=== PATIENT | female | born 1940 | race Hispanic/Latino ===

== ENCOUNTER → 2018-05-01 | Outpatient (CLI) | payer MEDICARE ==
[~2018-05-01] MED LIST: ALEN70TA47 PO; AMLO10TA6 PO; ASPI-1181 PO; ATOR10TA69 PO; CHOL500050 PO; ESOM40CA54 PO; FERS325 PO; FLUT16H NS; FURO40TA5 PO; INSU100V3 IJ; ISOS30TA6 PO; LEVO125T11 PO; METF-446 PO; METO200T49 PO; NPH,100V SQ; OLME20TA22 PO
== END | disposition home or self-care (01) ==
LOC: SHCH 09:25
PROVIDERS: ATTEND Internal Medicine Cardiovascular Disease
DX: I50.9 Heart failure, unspecified (principal)
CPT/HCPCS: 93306

== ENCOUNTER 2019-01-18 18:02 | Inpatient (IN) | payer MEDICARE ==
[~2019-01-18] VITALS: Ht 157.5 cm; Wt 87.7 kg
[~2019-01-18 18:02] MED LIST changes: +ALEN70TA10 PO; -ALEN70TA47 PO; -AMLO10TA6 PO; +AMLO10TA7 PO
[2019-01-18 18:57] LABS: BASOPHILS % (AUTO) 0.9 % (0.0-5.0); EOSINOPHILS % (AUTO) 3.3 % (0.0-8.0); HEMATOCRIT 31.7 % (36-48); LYMPHOCYTES % (AUTO) 13.9 % (21.0-51.0); MEAN CORPUSCULAR HEMOGLOBIN 24.6 pg (27.0-33.0); MEAN CORPUSCULAR HGB CONC 31.9 g/dL (32.0-36.0); MEAN CORPUSCULAR VOLUME 77.3 fL (79-99); MONOCYTES % (AUTO) 10.1 % (3.0-13.0); NEUTROPHILS % (AUTO) 71.8 % (40.0-77.0); NUCLEATED RED BLOOD CELLS 0.1 % (0.0-0.19); PLATELET COUNT (AUTO) 333 K/uL (130-400); RED CELL DISTRIBUTION WIDTH 18.7 % (11.0-15.5); WHITE BLOOD COUNT (AUTO) 9.3 K/uL (4.8-10.8)
[2019-01-18 19:15] LABS: CREATININE 1.3 mg/dL (0.5-1.5); POTASSIUM 4.8 mmol/L (3.5-5.1)
[2019-01-18 19:16] LABS: BILIRUBIN,TOTAL 0.4 mg/dL (0.2-1.0); TOTAL PROTEIN, SERUM 6.9 g/dL (6.0-8.3)
[2019-01-18 19:59] LABS: INR 1.06 (0.85-1.15); PARTIAL THROMBOPLASTIN TIME 29.3 SEC (26.3-35.5); PROTHROMBIN TIME 11.1 SEC (9.6-11.6)
[2019-01-18 20:18] LABS: B-TYPE NATRIURETIC PEPTIDE 665 pg/mL (0-100)
[2019-01-18] MEDS ORDERED: FUROSEMIDE 10 MG/ML 4ML VIAL ONE (20:25)
[2019-01-19] MEDS ORDERED: FUROSEMIDE 10 MG/ML 2ML VIAL ONE ×2 (03:58→10:16)
[2019-01-19] MEDS ORDERED: ONDANSETRON HCL 4 MG/2 ML VIAL IVP PRN (05:30)
[2019-01-19 06:07] LABS: BASOPHILS % (AUTO) 0.8 % (0.0-5.0); EOSINOPHILS % (AUTO) 3.3 % (0.0-8.0); LYMPHOCYTES % (AUTO) 13.6 % (21.0-51.0); MEAN CORPUSCULAR HGB CONC 31.9 g/dL (32.0-36.0); MEAN CORPUSCULAR VOLUME 75.4 fL (79-99); MONOCYTES % (AUTO) 10.8 % (3.0-13.0); NEUTROPHILS % (AUTO) 71.5 % (40.0-77.0); PLATELET COUNT (AUTO) 323 K/uL (130-400); RED BLOOD CELL COUNT(AUTO) 4.11 MIL/uL (4.00-5.50); RED CELL DISTRIBUTION WIDTH 18.4 % (11.0-15.5)
[2019-01-19 06:14] LABS: CREATININE 1.2 mg/dL (0.5-1.5); POTASSIUM 4.4 mmol/L (3.5-5.1)
[2019-01-19 06:21] LABS: ALBUMIN 2.9 g/dL (3.5-5.0); BILIRUBIN,TOTAL 0.5 mg/dL (0.2-1.0); MAGNESIUM 0.9 mg/dL (1.80-2.40); TOTAL PROTEIN, SERUM 6.7 g/dL (6.0-8.3)
[2019-01-19 06:29] LABS: B-TYPE NATRIURETIC PEPTIDE 751 pg/mL (0-100)
[2019-01-19] MEDS: FUROSEMIDE 10 MG/ML 2ML VIAL IVP SCH ×3 (09:00→20:11)
[2019-01-19 12:00] VITALS: BP 158/73
--- NOTE | 2019-01-19 12:24 | NUR ---
DR. MARK BRUNER ROUNDED CPOE ORDERS
[2019-01-19 16:00] VITALS: BP_SYST 174; BP_SYST 184; BP_DIAS 79; BP_DIAS 84
[2019-01-19] MEDS ORDERED: POTASSIUM CHLORIDE 20MEQ/100ML 100 ML IV PRN (16:15)
[2019-01-19] MEDS ORDERED: LIDOCAINE HCL-MPF 1% 2ML VIAL IVP PRN (16:15)
[2019-01-19] MEDS ORDERED: POTASSIUM CHLORIDE 20 MEQ ERTAB PO PRN (16:15)
[2019-01-19] MEDS ORDERED: DEXTROSE 50%-WATER 50 ML DISP.SYRIN IV PRN (16:15)
[2019-01-19] MEDS ORDERED: GLUCAGON 1MG KIT 1 MG ML IM PRN (16:15)
[2019-01-19] MEDS ORDERED: POTASSIUM CHLORIDE 10% ELIXIR 20 MEQ/15 ML UDCUP PO PRN (16:15)
[2019-01-19] MEDS ORDERED: MAGNESIUM 2GM PREMIX 50ML 50 ML IV ONE (16:16)
[2019-01-19] MEDS ORDERED: INSULIN HUMULIN R 100 UNIT/ML 3ML ONE (16:17)
[2019-01-19] MEDS ORDERED: INSULIN HUMULIN R 100 UNIT/ML 3ML SQ SCH (16:30)
[2019-01-19] MEDS: METFORMIN HCL 500 MG TABLET PO SCH (17:14)
[2019-01-19] MEDS ORDERED: ALEN70TA10 PO (17:27)
[2019-01-19] MEDS ORDERED: VALS320T16 PO (17:27)
[2019-01-19] MEDS ORDERED: OXYB5TAB10 PO (17:27)
[2019-01-19 19:00] VITALS: BP 142/64
[2019-01-19] MEDS: INSULIN HUMULIN R 100 UNIT/ML 3ML SQ SCH (20:11)
[2019-01-19] MEDS: ATORVASTATIN CALCIUM 10 MG TABLET PO SCH (20:11)
[2019-01-19] MEDS: ENALAPRIL MALEATE 5 MG TAB PO SCH (20:11)
[2019-01-19] MEDS: MAGNESIUM 2GM PREMIX 50ML 50 ML IV PRN (20:12)
[2019-01-20] VITALS (7 sets, daily range): BP systolic 120–169; BP diastolic 56–92
[2019-01-20] MEDS: FUROSEMIDE 10 MG/ML 2ML VIAL IVP SCH ×4 (03:02→20:10)
[2019-01-20 04:40] LABS: BASOPHILS % (AUTO) 0.5 % (0.0-5.0); EOSINOPHILS % (AUTO) 1.6 % (0.0-8.0); HEMATOCRIT 30.6 % (36-48); LYMPHOCYTES % (AUTO) 9.4 % (21.0-51.0); MEAN CORPUSCULAR HEMOGLOBIN 24.3 pg (27.0-33.0); MEAN CORPUSCULAR HGB CONC 32.1 g/dL (32.0-36.0); MEAN CORPUSCULAR VOLUME 75.9 fL (79-99); MONOCYTES % (AUTO) 11.2 % (3.0-13.0); NEUTROPHILS % (AUTO) 77.3 % (40.0-77.0); PLATELET COUNT (AUTO) 312 K/uL (130-400); RED BLOOD CELL COUNT(AUTO) 4.04 MIL/uL (4.00-5.50); RED CELL DISTRIBUTION WIDTH 17.8 % (11.0-15.5); WHITE BLOOD COUNT (AUTO) 12.6 K/uL (4.8-10.8)
[2019-01-20 04:49] LABS: B-TYPE NATRIURETIC PEPTIDE 611 pg/mL (0-100); INR 1.08 (0.85-1.15); PARTIAL THROMBOPLASTIN TIME 28.2 SEC (26.3-35.5); PROTHROMBIN TIME 11.3 SEC (9.6-11.6)
[2019-01-20 04:57] LABS: ALBUMIN 2.8 g/dL (3.5-5.0); BILIRUBIN,TOTAL 0.6 mg/dL (0.2-1.0); CREATININE 1.2 mg/dL (0.5-1.5); MAGNESIUM 1.5 mg/dL (1.80-2.40); PHOSPHORUS 3.8 mg/dL (2.5-4.9); POTASSIUM 3.7 mmol/L (3.5-5.1); TOTAL PROTEIN, SERUM 6.5 g/dL (6.0-8.3)
[2019-01-20] MEDS: LEVOTHYROXINE 125 MCG TABLET PO SCH (06:28)
[2019-01-20] MEDS: MAGNESIUM 2GM PREMIX 50ML 50 ML IV PRN (06:29)
[2019-01-20] MEDS: INSULIN HUMULIN R 100 UNIT/ML 3ML SQ SCH ×4 (06:34→20:21)
[2019-01-20] MEDS: ENOXAPARIN SODIUM 30 MG/0.3 ML SQ SCH (08:41)
[2019-01-20] MEDS: ISOSORBIDE MONO 30MG TAB SR PO SCH (08:41)
[2019-01-20] MEDS: LOSARTAN 100 MG TABLET PO SCH (08:42)
[2019-01-20] MEDS: ENALAPRIL MALEATE 5 MG TAB PO SCH ×2 (08:42→20:10)
[2019-01-20] MEDS: ASPIRIN 81 MG EC TAB PO SCH (08:42)
[2019-01-20] MEDS: AMLODIPINE BESYLATE 5 MG TAB PO SCH (08:42)
[2019-01-20] MEDS: METFORMIN HCL 500 MG TABLET PO SCH ×2 (08:42→17:00)
[2019-01-20] MEDS: FERROUS SULFATE 325 MG TABLET.DR PO SCH (08:42)
[2019-01-20] MEDS: IPRATROPIUM 0.5 MG/2.5 ML INH IH SCH ×3 (13:50→23:52)
[2019-01-20] MEDS ORDERED: DIATR MEGLU/DIATRIZOATE SODIUM 30 ML BOTTLE ONE ×2 (14:05→14:33)
--- NOTE | 2019-01-20 18:07 | NUR ---
cm note met with patient and states resides athome with alone, has provider approx 5hrs daily assists with bath and alds, pt uses walker and cane at home, has nebulizer. pt states would like to go to [facility] for rehab, prior to going home. has been there in the past, for rehab. informed that md orders were given for snf, Alex letter/YULIA obtained. Addendum: 01/20/19 at 1809 by LALITO HOOPER CM Amended: Links added.
--- NOTE | 2019-01-20 18:08 | NUR ---
DR. ESCOBAR AWARE OF PT'S REDNESS IN BLE AND PT'S CASA RASH ORDERS FOR MONIQUE AND LEROY ONLY
[2019-01-20 18:41] LABS: APPEARANCE,URINE CLOUDY (CLEAR); BILIRUBIN,URINE NEGATIVE (NEGATIVE); COLOR,URINE YELLOW (YELLOW); GLUCOSE, URINE (UA) NEGATIVE (NEGATIVE); KETONES,URINE NEGATIVE (NEGATIVE); LEUKOCYTE ESTERASE ,URINE LARGE (NEGATIVE); NITRATE,URINE NEGATIVE (NEGATIVE); OCCULT BLOOD,URINE TRACE-INTACT (NEGATIVE); PROTEIN,URINE 30 mg/dL (NEGATIVE); UROBILINOGEN,URINE 0.2 mg/dL (0.2-1.0)
[2019-01-20] MEDS ORDERED: PHARMACY COMMUNICATION MISC SCH (18:45)
[2019-01-20 19:00] LABS: BACTERIA,URINE Moderate /HPF (None Seen); RBC,URINE 0-1 /HPF (0-1); SQUAMOUS EPITHELIAL CELL,UR None Seen /HPF (0-2)
[2019-01-20] MEDS ORDERED: VANCOMYCIN PROTOCOL PER PHARMACY IV SCH (19:30)
[2019-01-20] MEDS ORDERED: VANCOMYCIN 1.5 GM in SODIUM CHLORIDE 0.9% 250 ML IV ONE (19:30)
[2019-01-20] MEDS: FLUTICASONE PROPIONATE 50MCG/SPRAY 16 GM BOTTLE NS SCH (20:10)
[2019-01-20] MEDS: ATORVASTATIN CALCIUM 10 MG TABLET PO SCH (20:10)
[2019-01-20] MEDS: ZOSYN 3.375GM+NS 50ML 50 ML IV SCH (20:23)
[2019-01-20] MEDS: ACETAMINOPHEN 325 MG TAB PO PRN (22:08)
[2019-01-21] MEDS: FUROSEMIDE 10 MG/ML 2ML VIAL IVP SCH ×3 (02:09→21:45)
[2019-01-21 03:42] VITALS: BP 134/60
[2019-01-21] MEDS: ZOSYN 3.375GM+NS 50ML 50 ML IV SCH ×3 (04:49→21:45)
[2019-01-21] MEDS: INSULIN HUMULIN R 100 UNIT/ML 3ML SQ SCH ×4 (05:41→21:50)
[2019-01-21 05:42] LABS: BASOPHILS % (AUTO) 0.4 % (0.0-5.0); EOSINOPHILS % (AUTO) 1.4 % (0.0-8.0); LYMPHOCYTES % (AUTO) 16.7 % (21.0-51.0); MEAN CORPUSCULAR HEMOGLOBIN 24.1 pg (27.0-33.0); MEAN CORPUSCULAR HGB CONC 31.9 g/dL (32.0-36.0); MEAN CORPUSCULAR VOLUME 75.5 fL (79-99); MONOCYTES % (AUTO) 15.2 % (3.0-13.0); NEUTROPHILS % (AUTO) 66.3 % (40.0-77.0); PLATELET COUNT (AUTO) 300 K/uL (130-400); RED BLOOD CELL COUNT(AUTO) 4.11 MIL/uL (4.00-5.50); RED CELL DISTRIBUTION WIDTH 18.4 % (11.0-15.5); WHITE BLOOD COUNT (AUTO) 11.2 K/uL (4.8-10.8)
[2019-01-21 06:08] LABS: ALBUMIN 2.8 g/dL (3.5-5.0); BILIRUBIN,TOTAL 1.1 mg/dL (0.2-1.0); CREATININE 1.2 mg/dL (0.5-1.5); MAGNESIUM 1.6 mg/dL (1.80-2.40); POTASSIUM 3.5 mmol/L (3.5-5.1); TOTAL PROTEIN, SERUM 6.5 g/dL (6.0-8.3)
[2019-01-21 06:09] LABS: B-TYPE NATRIURETIC PEPTIDE 905 pg/mL (0-100)
[2019-01-21] MEDS: LEVOTHYROXINE 125 MCG TABLET PO SCH (06:27)
[2019-01-21] MEDS: IPRATROPIUM 0.5 MG/2.5 ML INH IH SCH ×4 (07:20→22:13)
[2019-01-21] MEDS: METFORMIN HCL 500 MG TABLET PO SCH ×2 (07:53→16:35)
[2019-01-21] MEDS: FERROUS SULFATE 325 MG TABLET.DR PO SCH (07:53)
[2019-01-21 07:56] VITALS: BP 153/70
[2019-01-21] MEDS ORDERED: REGADENOSON 0.4 MG/5 ML PF SYG IVP SCH (08:15)
[2019-01-21] MEDS: LOSARTAN 100 MG TABLET PO SCH (10:11)
[2019-01-21] MEDS: ISOSORBIDE MONO 30MG TAB SR PO SCH (10:11)
[2019-01-21] MEDS: ENALAPRIL MALEATE 5 MG TAB PO SCH (10:12)
[2019-01-21] MEDS: ASPIRIN 81 MG EC TAB PO SCH (10:12)
[2019-01-21] MEDS: POLYETHYLENE GLYCOL 3350 17 GM POWD.PACK PO SCH (10:12)
[2019-01-21] MEDS: AMLODIPINE BESYLATE 5 MG TAB PO SCH (10:12)
[2019-01-21] MEDS: FLUTICASONE PROPIONATE 50MCG/SPRAY 16 GM BOTTLE NS SCH (10:13)
[2019-01-21] MEDS: ENOXAPARIN SODIUM 30 MG/0.3 ML SQ SCH (10:19)
--- NOTE | 2019-01-21 11:11 | NUR ---
C JENNIFFER ROUNDED ON PATIENT NEW ORDERS FOR TANYA-MEDROL , INCREASE LASIX DOSE TO 40 MG BID AND POTASSIUM AND MAG PROTOCOL , BREATHING TX CHANGED TO Q 4 HRIS , IS Q 2 HOURS W/A , AND BIPAP PRN
[2019-01-21] MEDS ORDERED: MAGNESIUM 2GM PREMIX 50ML 50 ML IV PRN (11:15)
[2019-01-21 11:23] VITALS: BP 138/62
[2019-01-21] MEDS ORDERED: METHYLPREDNISOLONE SOD SUCC 125MG/2ML VIAL IVP SCH (12:03)
[2019-01-21] MEDS ORDERED: FUROSEMIDE 10 MG/ML 2ML VIAL IVP SCH ×2 (15:00→21:00)
[2019-01-21 16:13] VITALS: BP 126/55
[2019-01-21] MEDS: MAGNESIUM 2GM PREMIX 50ML 50 ML IV PRN (17:16)
[2019-01-21] MEDS: VANCOMYCIN 1GM+NS 250ML 250 ML IV SCH (18:21)
[2019-01-21 19:12] VITALS: BP_SYST 120; BP_SYST 157; BP_DIAS 55; BP_DIAS 97
[2019-01-21] MEDS: METHYLPREDNISOLONE SOD SUCC 40MG/ML 1ML IVP SCH (21:45)
[2019-01-21] MEDS: ATORVASTATIN CALCIUM 10 MG TABLET PO SCH (21:45)
[2019-01-21 23:40] VITALS: BP 133/64
[2019-01-22] VITALS (7 sets, daily range): BP systolic 110–136; BP diastolic 51–81
[2019-01-22] MEDS: IPRATROPIUM 0.5 MG/2.5 ML INH IH SCH ×6 (01:54→21:26)
[2019-01-22] MEDS: ZOSYN 3.375GM+NS 50ML 50 ML IV SCH ×3 (05:13→20:27)
[2019-01-22] MEDS: FUROSEMIDE 10 MG/ML 2ML VIAL IVP SCH ×3 (05:14→23:07)
[2019-01-22 05:39] LABS: BASOPHILS % (AUTO) 0.1 % (0.0-5.0); HEMATOCRIT 28.3 % (36-48); LYMPHOCYTES % (AUTO) 11.4 % (21.0-51.0); MEAN CORPUSCULAR HEMOGLOBIN 24.7 pg (27.0-33.0); MONOCYTES % (AUTO) 3.9 % (3.0-13.0); NEUTROPHILS % (AUTO) 84.6 % (40.0-77.0); PLATELET COUNT (AUTO) 292 K/uL (130-400); RED BLOOD CELL COUNT(AUTO) 3.78 MIL/uL (4.00-5.50); RED CELL DISTRIBUTION WIDTH 18.5 % (11.0-15.5); WHITE BLOOD COUNT (AUTO) 8.5 K/uL (4.8-10.8)
[2019-01-22 06:01] LABS: CREATININE 1.3 mg/dL (0.5-1.5); MAGNESIUM 1.8 mg/dL (1.80-2.40); PHOSPHORUS 3.7 mg/dL (2.5-4.9); POTASSIUM 3.9 mmol/L (3.5-5.1)
[2019-01-22] MEDS: LEVOTHYROXINE 125 MCG TABLET PO SCH (06:26)
[2019-01-22 06:27] LABS: B-TYPE NATRIURETIC PEPTIDE 731 pg/mL (0-100)
[2019-01-22] MEDS: INSULIN HUMULIN R 100 UNIT/ML 3ML SQ SCH ×4 (06:27→20:28)
[2019-01-22] MEDS: FERROUS SULFATE 325 MG TABLET.DR PO SCH (08:07)
[2019-01-22] MEDS: METFORMIN HCL 500 MG TABLET PO SCH ×2 (08:07→17:15)
[2019-01-22] MEDS: ISOSORBIDE MONO 30MG TAB SR PO SCH (09:57)
[2019-01-22] MEDS: METHYLPREDNISOLONE SOD SUCC 40MG/ML 1ML IVP SCH (09:57)
[2019-01-22] MEDS: AMLODIPINE BESYLATE 5 MG TAB PO SCH (09:57)
[2019-01-22] MEDS: LOSARTAN 100 MG TABLET PO SCH (09:58)
[2019-01-22] MEDS: POLYETHYLENE GLYCOL 3350 17 GM POWD.PACK PO SCH (09:58)
[2019-01-22] MEDS: ASPIRIN 81 MG EC TAB PO SCH (09:58)
[2019-01-22] MEDS: FLUTICASONE PROPIONATE 50MCG/SPRAY 16 GM BOTTLE NS SCH (09:58)
[2019-01-22] MEDS: ENOXAPARIN SODIUM 30 MG/0.3 ML SQ SCH (09:59)
--- NOTE | 2019-01-22 10:50 | NUR ---
LARRY ABAD ROUNDED ON PATIENT NEW ORDERS TO CHANGE TANYA-MEDROL TO 40MG DAILY.
[2019-01-22] MEDS: MAGNESIUM 2GM PREMIX 50ML 50 ML IV PRN (11:04)
[2019-01-22] MEDS: VANCOMYCIN 1GM+NS 250ML 250 ML IV SCH (17:51)
[2019-01-22] MEDS: ATORVASTATIN CALCIUM 10 MG TABLET PO SCH (20:27)
[2019-01-23] VITALS (7 sets, daily range): BP systolic 87–120; BP diastolic 52–66
[2019-01-23] MEDS: IPRATROPIUM 0.5 MG/2.5 ML INH IH SCH ×6 (01:43→21:59)
[2019-01-23] MEDS: FUROSEMIDE 10 MG/ML 2ML VIAL IVP SCH (04:39)
[2019-01-23] MEDS: ZOSYN 3.375GM+NS 50ML 50 ML IV SCH ×2 (04:39→12:13)
[2019-01-23] MEDS: LEVOTHYROXINE 125 MCG TABLET PO SCH (05:45)
[2019-01-23] MEDS: INSULIN HUMULIN R 100 UNIT/ML 3ML SQ SCH ×4 (05:54→20:35)
[2019-01-23] MEDS: REGADENOSON 0.4 MG/5 ML PF SYG IVP SCH ×2 (08:30→10:59)
[2019-01-23] MEDS ORDERED: FUROSEMIDE 40 MG TABLET PO SCH (09:00)
[2019-01-23] MEDS ORDERED: METHYLPREDNISOLONE SOD SUCC 40MG/ML 1ML IVP SCH (09:00)
[2019-01-23] MEDS: POLYETHYLENE GLYCOL 3350 17 GM POWD.PACK PO SCH (09:00)
[2019-01-23] MEDS: ASPIRIN 81 MG EC TAB PO SCH (10:32)
[2019-01-23] MEDS: LOSARTAN 100 MG TABLET PO SCH (10:32)
[2019-01-23] MEDS: ISOSORBIDE MONO 30MG TAB SR PO SCH (10:34)
[2019-01-23] MEDS: AMLODIPINE BESYLATE 5 MG TAB PO SCH (10:34)
[2019-01-23] MEDS: FERROUS SULFATE 325 MG TABLET.DR PO SCH (10:46)
[2019-01-23] MEDS: ENOXAPARIN SODIUM 30 MG/0.3 ML SQ SCH (10:46)
[2019-01-23] MEDS: METFORMIN HCL 500 MG TABLET PO SCH (10:46)
[2019-01-23] MEDS: FLUTICASONE PROPIONATE 50MCG/SPRAY 16 GM BOTTLE NS SCH (10:47)
[2019-01-23 11:59] LABS: CREATININE 1.7 mg/dL (0.5-1.5); POTASSIUM 3.7 mmol/L (3.5-5.1)
[2019-01-23] MEDS ORDERED: DIGOXIN 250 MCG/ML 2ML AMP IV ONE (12:00)
[2019-01-23] MEDS: METOPROLOL TARTRATE 1 MG/ML 5ML VIAL IV PRN ×3 (12:14→12:45)
--- NOTE | 2019-01-23 12:17 | NUR ---
AFIB 158 ZZ=873/60 METROPOLOL GIVEN 5MG IV X1 1229 SE=759/44 AFIB 125 METOPROLOL GIVEN 5MG IV X1 1237 BP=94/60 AFIB 145 1242 AFIB 130 116/60 1245 METROPOLOL GIVEN 5MG IVX1 1247 REPORT CALLED TO JOEL, NO ANSWER. 1250 REPORT CALLED TO JOEL [facility]. [facility] WT=422/62 AFIB 106 PT REPORTS SHE FEELS BETTER "A LITTLE TIRED" 1305 - NOTIFIED TWAN AND TRANSFERRED TO [facility]
--- NOTE | 2019-01-23 13:00 | NUR ---
REFERRAL MADE TO [facility]IKA FREGOSO FOLLOWING UP ON THE ORDER FROM 01/21; SENT CLINICALS,ORDER/PASSR TO [facility] PER PT REQUEST; CALL MADE TO MORGAN UNDERWOOD FROM [facility], ADVISED HER THAT THERE WAS A CHANGE IN PT STATUS- A FIB WITH [facility], THAT SHE WOULD NOT BE DISCHARGING TOMORROW, INDICATED ON THE REFERRAL- CHANGE IN STATUS, INCREASED LENGTH OF STAY. ADVISED BY NURSE THAT DID COME TO SEE PT TO ATTEMPT EVALUATION, PT CURRENTLY TRANSFERRED TO PCU; CM TO FOLLOW Addendum: 01/23/19 at 1547 by SHONA VAUGHAN RN CM Amended: Links added.
--- NOTE | 2019-01-23 13:20 | NUR ---
ARRIVAL TO FLOOR ROOM 232, REPORT RECEIVED FROM SHIRIN RAINEY. PATIENT IS AAOX4 DENIES CP DENIES SOB DENIES NV. HR VIA TELE AFIB 110S. VISITOR IS AT BEDSIDE, CALL LIGHT WITHIN REACH.
--- NOTE | 2019-01-23 15:00 | NUR ---
STATUS PATIENT IS RESTING IN BED, UPDATES GIVEN TO Víctor WEST PA-C, ORDERS RECEIVED.
[2019-01-23] MEDS ORDERED: AMIODARONE HCL 150 MG in DEXTROSE 5%-WATER 100 ML IV PRN (18:45)
[2019-01-23] MEDS ORDERED: AMIODARONE HCL 900 MG in DEXTROSE 5%-WATER 500 ML IV PRN (18:45)
[2019-01-23] MEDS: ATORVASTATIN CALCIUM 10 MG TABLET PO SCH (19:54)
[2019-01-23] MEDS: FUROSEMIDE 10 MG/ML 4ML VIAL IV SCH (19:54)
[2019-01-23] MEDS: METOPROLOL TARTRATE 25 MG TAB PO SCH (19:54)
[2019-01-23] MEDS: CEFTRIAXONE SODIUM 1 GM IVP SCH (22:28)
[2019-01-24] MEDS: IPRATROPIUM 0.5 MG/2.5 ML INH IH SCH ×6 (02:09→21:45)
--- NOTE | 2019-01-24 03:00 | NUR ---
NEW IV 22G TO RIGHT AC STARTED. CONTINUES ON AMIODARONE DRIP AT 16.3ML.HR PER PROTOCOL.
[2019-01-24 03:03] VITALS: BP 91/53
[2019-01-24 04:05] LABS: CREATININE 2.1 mg/dL (0.5-1.5); POTASSIUM 4.3 mmol/L (3.5-5.1)
[2019-01-24] MEDS: ACETAMINOPHEN 325 MG TAB PO PRN (04:42)
[2019-01-24] MEDS: LEVOTHYROXINE 125 MCG TABLET PO SCH (06:10)
[2019-01-24] MEDS: INSULIN HUMULIN R 100 UNIT/ML 3ML SQ SCH ×4 (06:29→20:59)
--- NOTE | 2019-01-24 07:25 | NUR ---
ASSESSMENT PT IS RESTING IN BED, HOB UP AT 30 DEGREES. NO VISIBLE SIGNS OF DISTRESS NOTED, BREATHING PATTERN IS EVEN AND UNLABORED. AMIODARONE INFUSING PER PROTOCOL, HR VIA TELE AFIB 80S.
[2019-01-24 07:35] VITALS: BP 98/48
[2019-01-24] MEDS: ISOSORBIDE MONO 30MG TAB SR PO SCH (08:06)
[2019-01-24] MEDS: METOPROLOL TARTRATE 25 MG TAB PO SCH ×3 (08:06→20:07)
[2019-01-24] MEDS: ENOXAPARIN SODIUM 30 MG/0.3 ML SQ SCH (08:10)
[2019-01-24] MEDS: FERROUS SULFATE 325 MG TABLET.DR PO SCH (08:11)
[2019-01-24] MEDS: FUROSEMIDE 10 MG/ML 4ML VIAL IV SCH (08:11)
[2019-01-24] MEDS: ASPIRIN 81 MG EC TAB PO SCH (08:11)
[2019-01-24] MEDS: POLYETHYLENE GLYCOL 3350 17 GM POWD.PACK PO SCH (08:11)
[2019-01-24] MEDS: FLUTICASONE PROPIONATE 50MCG/SPRAY 16 GM BOTTLE NS SCH (08:11)
[2019-01-24] MEDS: PREDNISONE 20 MG TABLET PO SCH (08:11)
--- NOTE | 2019-01-24 08:30 | NUR ---
DR COLLEEN VARELA SAW PATIENT, ORDERS RECEIVED. STATES ITS OK TO GIVE THIS AMs METOPROLOL, OK TO NOT GIVE IMDUR.
[2019-01-24] MEDS: FUROSEMIDE 20 MG TABLET PO SCH ×2 (08:53→16:09)
[2019-01-24] MEDS ORDERED: LOSARTAN 50 MG TABLET PO SCH (09:00)
[2019-01-24] MEDS ORDERED: ENOXAPARIN SODIUM 60 MG/0.6 ML SQ SCH (09:40)
[2019-01-24 11:15] VITALS: BP 100/61
--- NOTE | 2019-01-24 12:30 | NUR ---
STATUS BACK TO BED, CONTINUES ON AMIODARONE PER PROTOCOL. HR AFIB 100S-110S.
[2019-01-24 15:10] VITALS: BP 107/64
[2019-01-24 18:59] VITALS: BP 115/59
[2019-01-24] MEDS: ATORVASTATIN CALCIUM 10 MG TABLET PO SCH (20:07)
--- NOTE | 2019-01-24 22:00 | NUR ---
AMIODARONE DRIP COMPLETE AT THIS TIME. PT CONTINUES AFIB-110'S-120'S. STABLE. ASYMPTOMATIC. NO DISTRESS NOTED. NPO AT MIDNIGHT DUE TO 2ND PART OF STRESS TEST TOMORROW 01/25.
[2019-01-24] MEDS: CEFTRIAXONE SODIUM 1 GM IVP SCH (22:50)
[2019-01-24 23:11] VITALS: BP 131/68
[2019-01-25] MEDS: IPRATROPIUM 0.5 MG/2.5 ML INH IH SCH ×6 (01:55→21:34)
[2019-01-25 04:00] VITALS: BP 127/58
[2019-01-25 04:06] LABS: BASOPHILS % (AUTO) 0.5 % (0.0-5.0); EOSINOPHILS % (AUTO) 0.3 % (0.0-8.0); HEMATOCRIT 31.6 % (36-48); MEAN CORPUSCULAR HEMOGLOBIN 24.4 pg (27.0-33.0); MEAN CORPUSCULAR VOLUME 76.3 fL (79-99); MONOCYTES % (AUTO) 11.7 % (3.0-13.0); NEUTROPHILS % (AUTO) 74.5 % (40.0-77.0); NUCLEATED RED BLOOD CELLS 0.2 % (0.0-0.19); PLATELET COUNT (AUTO) 319 K/uL (130-400); RED BLOOD CELL COUNT(AUTO) 4.15 MIL/uL (4.00-5.50); RED CELL DISTRIBUTION WIDTH 18.6 % (11.0-15.5); WHITE BLOOD COUNT (AUTO) 13.1 K/uL (4.8-10.8)
[2019-01-25 04:14] LABS: CREATININE 2.2 mg/dL (0.5-1.5); PHOSPHORUS 5.9 mg/dL (2.5-4.9); POTASSIUM 4.7 mmol/L (3.5-5.1)
[2019-01-25] MEDS: LEVOTHYROXINE 125 MCG TABLET PO SCH (04:19)
[2019-01-25] MEDS: INSULIN HUMULIN R 100 UNIT/ML 3ML SQ SCH ×4 (06:17→20:46)
[2019-01-25] MEDS: FERROUS SULFATE 325 MG TABLET.DR PO SCH (07:59)
[2019-01-25] MEDS: METOPROLOL TARTRATE 25 MG TAB PO SCH ×2 (08:12→20:42)
[2019-01-25] MEDS: FUROSEMIDE 20 MG TABLET PO SCH (08:12)
[2019-01-25] MEDS: ASPIRIN 81 MG EC TAB PO SCH (08:12)
[2019-01-25] MEDS: PREDNISONE 20 MG TABLET PO SCH (08:12)
[2019-01-25 08:13] VITALS: BP 120/48
[2019-01-25] MEDS: POLYETHYLENE GLYCOL 3350 17 GM POWD.PACK PO SCH (08:14)
[2019-01-25] MEDS: ENOXAPARIN SODIUM 100 MG/1 ML SQ SCH (08:15)
[2019-01-25] MEDS: FLUTICASONE PROPIONATE 50MCG/SPRAY 16 GM BOTTLE NS SCH (08:16)
[2019-01-25] MEDS ORDERED: REGADENOSON 0.4 MG/5 ML PF SYG IVP SCH (10:30)
--- NOTE | 2019-01-25 11:25 | NUR ---
Nutrition Intervention: Nutrition screen based on LOS x 7 days. Pt. admitted with Dx of Acute Heart Failure. Pt. not in room during visit- out for procedure. Pt. NPO for procedure. Previously on 75gm CCD Heart Healthy diet with good p.o.intake, as noted in EMR. Labs reviewed(Alb 2.8, BUN 74, Creat 2.2, GFR 23, BG 215, Na 129). LBM: 01/24/19. SR-19, edematous. Pt. with 1+ edema to BLE. BMI: 35.7, Obesity Grade 1, for age. Recommendations: 1) When diet resumed, rec. 75gm CCD Heart Healthy Renal Non Dialysis diet with 1200ml Fluid Restriction. 2) Continue to monitor pt's nutritional status. 3) Consult RD as nutrition concerns arise. Addendum: 01/25/19 at [address] Amended: Links added.
[2019-01-25 12:19] VITALS: BP 105/73
[2019-01-25] MEDS: AMIODARONE HCL 200 MG TABLET PO SCH (13:49)
[2019-01-25 15:36] VITALS: BP 120/80
--- NOTE | 2019-01-25 16:45 | NUR ---
cm note received call [facility] and states pt accepted, whenever pt ready for transfer. updated primary nurse mercedes. .pt pending stress test studies/results.
[2019-01-25 19:59] VITALS: BP 111/55
[2019-01-25] MEDS: ATORVASTATIN CALCIUM 10 MG TABLET PO SCH (20:42)
[2019-01-25] MEDS: CEFTRIAXONE SODIUM 1 GM IVP SCH (22:13)
[2019-01-25 23:48] VITALS: BP 105/52
[2019-01-26] VITALS (11 sets, daily range): BP systolic 118–141; BP diastolic 55–82
[2019-01-26] MEDS: IPRATROPIUM 0.5 MG/2.5 ML INH IH SCH ×5 (01:59→21:10)
[2019-01-26 03:29] LABS: BASOPHILS % (AUTO) 1.1 % (0.0-5.0); EOSINOPHILS % (AUTO) 0.5 % (0.0-8.0); LYMPHOCYTES % (AUTO) 14.4 % (21.0-51.0); MEAN CORPUSCULAR HEMOGLOBIN 24.2 pg (27.0-33.0); MEAN CORPUSCULAR HGB CONC 32.2 g/dL (32.0-36.0); MEAN CORPUSCULAR VOLUME 75.1 fL (79-99); MONOCYTES % (AUTO) 11.1 % (3.0-13.0); NEUTROPHILS % (AUTO) 72.9 % (40.0-77.0); NUCLEATED RED BLOOD CELLS 0.1 % (0.0-0.19); PLATELET COUNT (AUTO) 371 K/uL (130-400); RED BLOOD CELL COUNT(AUTO) 4.13 MIL/uL (4.00-5.50); RED CELL DISTRIBUTION WIDTH 18.5 % (11.0-15.5); WHITE BLOOD COUNT (AUTO) 13.4 K/uL (4.8-10.8)
[2019-01-26 03:47] LABS: MAGNESIUM 2.1 mg/dL (1.80-2.40); PHOSPHORUS 5.2 mg/dL (2.5-4.9); POTASSIUM 4.2 mmol/L (3.5-5.1)
[2019-01-26] MEDS: INSULIN HUMULIN R 100 UNIT/ML 3ML SQ SCH ×4 (06:22→21:08)
[2019-01-26] MEDS: LEVOTHYROXINE 125 MCG TABLET PO SCH (06:23)
[2019-01-26] MEDS: ASPIRIN 81 MG EC TAB PO SCH (08:23)
[2019-01-26] MEDS: METOPROLOL TARTRATE 25 MG TAB PO SCH (08:23)
[2019-01-26] MEDS: AMIODARONE HCL 200 MG TABLET PO SCH ×2 (08:23→21:07)
[2019-01-26] MEDS: FERROUS SULFATE 325 MG TABLET.DR PO SCH (08:23)
[2019-01-26] MEDS: ENOXAPARIN SODIUM 100 MG/1 ML SQ SCH (08:24)
[2019-01-26] MEDS: POLYETHYLENE GLYCOL 3350 17 GM POWD.PACK PO SCH (08:24)
[2019-01-26] MEDS ORDERED: PREDNISONE 20 MG TABLET PO SCH (09:00)
[2019-01-26] MEDS: FLUTICASONE PROPIONATE 50MCG/SPRAY 16 GM BOTTLE NS SCH (09:00)
[2019-01-26] MEDS: METOPROLOL TARTRATE 1 MG/ML 5ML VIAL IV PRN ×3 (10:52→11:26)
[2019-01-26] MEDS ORDERED: DIGOXIN 250 MCG/ML 2ML AMP IV ONE (13:20)
[2019-01-26] MEDS: ATORVASTATIN CALCIUM 10 MG TABLET PO SCH (21:07)
[2019-01-26] MEDS: METOPROLOL TARTRATE 50 MG TAB PO SCH (21:07)
[2019-01-26] MEDS: APIXABAN 2.5 MG TABLET PO SCH (21:07)
[2019-01-26] MEDS: CEFTRIAXONE SODIUM 1 GM IVP SCH (21:11)
[2019-01-27] MEDS: IPRATROPIUM 0.5 MG/2.5 ML INH IH SCH ×4 (01:26→14:00)
[2019-01-27 03:38] LABS: BASOPHILS % (AUTO) 0.8 % (0.0-5.0); EOSINOPHILS % (AUTO) 3.4 % (0.0-8.0); LYMPHOCYTES % (AUTO) 13.8 % (21.0-51.0); MEAN CORPUSCULAR HEMOGLOBIN 23.9 pg (27.0-33.0); MEAN CORPUSCULAR HGB CONC 30.8 g/dL (32.0-36.0); MEAN CORPUSCULAR VOLUME 77.7 fL (79-99); MONOCYTES % (AUTO) 10.4 % (3.0-13.0); NEUTROPHILS % (AUTO) 71.6 % (40.0-77.0); NUCLEATED RED BLOOD CELLS 0.1 % (0.0-0.19); PLATELET COUNT (AUTO) 348 K/uL (130-400); RED BLOOD CELL COUNT(AUTO) 4.25 MIL/uL (4.00-5.50); RED CELL DISTRIBUTION WIDTH 19.2 % (11.0-15.5); WHITE BLOOD COUNT (AUTO) 14.3 K/uL (4.8-10.8)
[2019-01-27 03:51] LABS: CREATININE 1.8 mg/dL (0.5-1.5); PHOSPHORUS 4.7 mg/dL (2.5-4.9); POTASSIUM 5.2 mmol/L (3.5-5.1)
[2019-01-27 04:11] LABS: B-TYPE NATRIURETIC PEPTIDE 1560 pg/mL (0-100)
[2019-01-27 04:36] VITALS: BP 139/71
[2019-01-27] MEDS: SODIUM POLYSTYRENE SULFONATE 15 GM/60 ML ML ONE ×2 (04:49→05:30)
[2019-01-27] MEDS: SODIUM POLYSTYRENE SULFONATE 15 GM/60 ML ML RC ONE ×2 (05:29→05:30)
[2019-01-27] MEDS: INSULIN HUMULIN R 100 UNIT/ML 3ML SQ SCH ×3 (05:46→16:19)
[2019-01-27] MEDS: LEVOTHYROXINE 125 MCG TABLET PO SCH (07:29)
[2019-01-27 07:48] VITALS: BP 139/50
[2019-01-27] MEDS: FERROUS SULFATE 325 MG TABLET.DR PO SCH (08:40)
[2019-01-27] MEDS: ASPIRIN 81 MG EC TAB PO SCH (08:40)
[2019-01-27] MEDS: METOPROLOL TARTRATE 50 MG TAB PO SCH (08:40)
[2019-01-27] MEDS: APIXABAN 2.5 MG TABLET PO SCH (08:40)
[2019-01-27] MEDS: FLUTICASONE PROPIONATE 50MCG/SPRAY 16 GM BOTTLE NS SCH (08:40)
[2019-01-27] MEDS: AMIODARONE HCL 200 MG TABLET PO SCH (08:40)
[2019-01-27] MEDS: POLYETHYLENE GLYCOL 3350 17 GM POWD.PACK PO SCH (08:41)
[2019-01-27] MEDS ORDERED: FUROSEMIDE 10 MG/ML 4ML VIAL IV SCH (09:45)
[2019-01-27 11:55] VITALS: BP 122/61
[2019-01-27 15:48] VITALS: BP 152/72
[2019-01-28] MEDS ORDERED: FUROSEMIDE 40 MG TABLET PO SCH (09:00)
== END 2019-01-27 17:50 | DRG 291 ==
LOC: EDH 18:02 → EDHIP 21:53 → OBSVTOIN 21:53 → 4BH 01-19 10:50 → 2AH 01-23 12:56 → UNDODISIN 01-27 17:50
PROVIDERS: ADMIT Internal Medicine Critical Care Medicine; ATTEND Internal Medicine Critical Care Medicine
DX: I13.0 Hypertensive heart and chronic kidney disease with heart failure and stage 1 through stage 4 chronic kidney disease, or unspecified chronic kidney disease (principal); I50.33 Acute on chronic diastolic (congestive) heart failure; K56.7 Ileus, unspecified; N17.9 Acute kidney failure, unspecified; J44.1 Chronic obstructive pulmonary disease with (acute) exacerbation; I27.20 Pulmonary hypertension, unspecified; D64.9 Anemia, unspecified; E03.9 Hypothyroidism, unspecified; E11.22 Type 2 diabetes mellitus with diabetic chronic kidney disease; N18.9 Chronic kidney disease, unspecified; E78.5 Hyperlipidemia, unspecified; I48.0 Paroxysmal atrial fibrillation; M41.9 Scoliosis, unspecified; D72.829 Elevated white blood cell count, unspecified; Z79.82 Long term (current) use of aspirin; Z79.890 Hormone replacement therapy; Z79.899 Other long term (current) drug therapy; Z87.891 Personal history of nicotine dependence
CPT/HCPCS: 36415; 71045; 71250; 74176; 78452; 80048; 80053; 81001; 82948; 83735; 83880; 84100; 84132; 84484; 85025; 85610; 85730; 87077; 87088; 87186; 93005; 93306; 93971; 94640; 94664; 97039; A9500; G0378; J0696; J1160; J1650; J1815; J1940; J2405; J2543; J2785; J2920; J2930; J3370; J3475; J3490; J7030; Q9963